=== PATIENT | female | born 2000 | race Two or more races ===

== ENCOUNTER 2025-08-20 00:11 | Emergency (ER) | payer OTHER, SELFPAY ==
[~2025-08-20] VITALS: Ht 167.6 cm; Wt 81.1 kg
[2025-08-20 00:13] VITALS: BP 124/79; PULSE 96; RESP 20; TEMP 101.6; O2SAT 97
[2025-08-20] MEDS: SODIUM CHLORIDE 0.9% 1,000 ML IV ONE (01:15)
--- NOTE | 2025-08-20 01:22 | ED.PDOC ---
HPI (NEURO) HPI Comments 24 y/o F presents with c/c of headache, nausea, and vomiting. Patient reports ongoing symptoms following initial, unprovoked and atraumatic onset, yesterday. Chief Complaint: Headache Time Seen by MD: 00:22 Reviewed Notes: Nurses Notes, Medications, Allergies Information Source: Patient Mode of Arrival: Ambulatory Past Medical History PAST MEDICAL HISTORY: Denies Surgical History: Denies all surgeries HEEL COVERER History: No Pertinent HEEL COVERER History Social History Smoker: Non-Smoker Alcohol: Denies ETOH Use Drugs: Denies Drug Use Lives In: Home All Other Systems: Reviewed and Negative (As per HPI) Physical Exam General Appearance: No Apparent Distress, Normal HEENT: Normal ENT Inspection, Pharynx Normal, TMs Normal Neck: Full Range of Motion, Non-Tender, Normal, Normal Inspection Respiratory: Chest Non-Tender, Lungs Clear, No Accessory Muscle Use, No Respiratory Distress, Normal Breath Sounds Cardiovascular: No Edema, No JVD, No Murmur, No Gallop, Normal Peripheral Pulses, Regular Rate/Rhythm Breast Exam: Deferred Gastrointestinal: No Organomegaly, Non Tender, No Pulsatile Mass, Normal Bowel Sounds, Soft Genitalia: Deferred Pelvic: Deferred Rectal: Deferred Extremities: No calf tenderness, Normal capillary refill, Normal inspection, Normal range of motion, Non-tender, No pedal edema Musculoskeletal : Apperance: Normal Neurologic: Alert, pediatric dietician II-XII nml as Tested, No Motor Deficits, Normal Affect, Normal Mood, No Sensory Deficits Cerebellar Function: Normal Reflexes: Normal Skin: Dry, Normal Color, Warm Lymphatic: No Adenopathy Was a procedure done? Was a procedure done?: No Differential Diagnosis (SZ) Headache: Cluster, Migraine, CVA, Epidural Hemorrhage, Intracerebral Hemorrhage, Subarachnoid Hemorrhage, Subdural Hemorrhage, Sinusitis X-Ray, Labs, Meds, VS Vital Signs Date Time Temp Pulse Resp B/P (MAP) Pulse Ox O2 Delivery O2 Flow Rate FiO2 08/20/25 00:13 101.6 96 20 124/79 97 101.6 Lab Test 08/20/25 03:05 Range/Units Influenza Type A Antigen Negative Negative Influenza Type B Antigen Negative Negative SARS-CoV-2 Antigen (Rapid) Negative NEGATIVE Current Medications Medications (Trade) Dose Ordered Sig/Dasha Route Start Time Stop Time Status Last Admin Acetaminophen (Tylenol Tablet Or Capsule) 1,000 mg ONCE ONCE PO 08/20/25 01:15 08/20/25 01:16 DC 08/20/25 02:31 Sodium Chloride 1,000 ml @ 1,000 mls/hr Q1H ONCE IV 08/20/25 01:15 08/20/25 02:14 DC 08/20/25 01:15 Ketorolac Tromethamine (Toradol Injection) 30 mg ONCE ONCE IV 08/20/25 01:15 08/20/25 01:16 DC 08/20/25 02:30 Prochlorperazine Edisylate (Compazine Inj) 5 mg ONCE ONCE IV 08/20/25 01:15 08/20/25 01:16 DC 08/20/25 02:30 X-Ray, Labs, Meds, VS Comment Patient received 1 L of IV fluids, Tylenol 1 g p.o., Toradol 30 mg IV push and Compazine 5 mg IV push. Influenza and COVID swabs negative This provider when out to discuss results with patient however patient eloped with significant other. IV was removed by nurse. Time of 1ST Reevaluation: 01:00 Reevaluation 1ST: Unchanged Time of 2ND Reevaluation: 04:45 Reevaluation 2ND: Patient eloped Patient Education/Counseling: Diagnosis, Treatment, Need For Follow Up Family Education/Counseling: Diagnosis, Treatment Departure 1 Departure Time of Disposition: 04:46 Impression: Primary Impression: Viral syndrome Disposition: 07 LEFT AWOL/ELOPED Condition: Stable Discharged With: Significant Other Critical Care Note Critical Care Time?: No Stability Stability form required: No Heart Score Heart Score: Heart Score Response (Comments) Value History N/A 0 EKG N/A 0 Age N/A 0 Risk Factors N/A 0 Troponin N/A 0 Total 0 I personally scribed for ER ([email or web address]) on 08/20/25 at 01:22. Electronically fam bmitted by Darrius Mackenzie ([email or web address]). ER Aug 20, 2025 01:22 ANGELA JOE Aug 20, 2025 02:47
[2025-08-20] MEDS: PROCHLORPERAZINE EDISYLATE 5 MG/ML 2ML VIAL IV ONE (02:30)
[2025-08-20] MEDS: KETOROLAC TROMETH 30 MG/ML 1ML VIAL IV ONE (02:30)
[2025-08-20] MEDS: ACETAMINOPHEN 500 MG TAB or CAP PO ONE (02:31)
[2025-08-20 04:15] LABS: COVID19 ANTIGEN SOFIA FIA NEGATIVE (NEGATIVE)
[2025-08-20] MEDS ORDERED: BACDST PO (16:55)
== END 2025-08-20 04:10 | disposition left against medical advice (07) ==
LOC: ER 00:11
DX: B34.9 Viral infection, unspecified (principal); Z20.822 Contact with and (suspected) exposure to COVID-19
CPT/HCPCS: 36415; 87426; 87804; 96361; 96374; 96375; 99284; J0780; J1885; J7030

== ENCOUNTER 2025-08-20 11:42 | Emergency (ER) | payer SELFPAY ==
[~2025-08-20] VITALS: Ht 167.6 cm; Wt 82.2 kg
[2025-08-20 14:29] LABS: Urine Protein, UAD 2+ (Negative); Urine WBC Clumps PRESENT /hpf (None Seen)
[2025-08-20 14:34] LABS: Amphetamine Screen, Urine Neg (NEGATIVE)
[2025-08-20 14:36] LABS: Barbiturate Scree,Urine Neg (NEGATIVE); Benzodiazephine Screen, Urine Neg (NEGATIVE); Cannabinoid Screen, Urine Neg (NEGATIVE); Cocaine Screen, Urine Neg (NEGATIVE); Opiate Scree,Urine Neg (NEGATIVE); Phencyclidine Screen, Urine Neg (NEGATIVE)
[2025-08-20 14:38] LABS: Chloride 107 mmol/L (98-107); Hematocrit 30.0 % (36.0-46.0); Hemoglobin 9.6 g/dL (12.2-16.2); Mean Corpuscular Hemoglobin 23.7 pg (28.0-32.0); Mean Corpuscular Volume 74.2 fL (80.0-100.0); Nucleated Red Blood Cells % 0.0 %; Potassium 3.9 mmol/L (3.5-5.1); Sodium 142 mmol/L (136-145)
[2025-08-20 14:39] LABS: Anion Gap 13 (5-15); Carbon Dioxide 22 mmol/L (20-31)
[2025-08-20 14:40] LABS: Calcium 9.5 mg/dL (8.7-10.4)
[2025-08-20 14:45] LABS: BUN/Creatinine Ratio 21.3 (10.0-20.0); Blood Urea Nitrogen 17 mg/dL (9-23); Glucose 114 mg/dL (74-106)
--- NOTE | 2025-08-20 15:20 | ED.PDOC ---
General HPI Comments This is a pleasant 24-year-old female that presents with generalized malaise, myalgia, fevers, headache Patient reports she was here yesterday for a generalized headache and body aches, was treated with the medications and discharged after COVID and influenza tests were negative Patient admits medication helps temporarily but reports worsening symptoms this morning upon waking up Is not able to get adequate relief with [id number] Tylenol and Motrin Denies persistent chest pain, shortness of breath, leg swelling Denies history of asthma nor any breathing conditions Denies history of pneumonia Denies recent international travel Chief Complaint: Headache Time Seen by MD: 11:52 Reviewed notes: Nurses Notes, Medications, Allergies Allergies: Coded Allergies: NO KNOWN ALLERGIES (Unverified , 08/20/25) Home Meds Active Scripts Sulfamethoxazole W/Trimethopri (Bactrim Ds Tablet) 1 Tab Tb, 1 TAB PO BID for 14 Days, #28 TAB 0 Refills Prov:OSCAR HARRIS NP 08/20/25 Information Source: Patient Mode of Arrival: Ambulatory Past Medical History PAST MEDICAL HISTORY: Denies Surgical History: Denies all surgeries DIESEL ENGINE I PIPE FITTER History: No Pertinent DIESEL ENGINE I PIPE FITTER History Social History Smoker: Non-Smoker Alcohol: Denies ETOH Use Drugs: Denies Drug Use Lives In: Home All Other Systems: Reviewed and Negative (Per HPI) Physical Exam General Appearance: No Apparent Distress, Normal HEENT: Normal ENT Inspection, Pharynx Normal, TMs Normal Neck: Full Range of Motion, Non-Tender, Normal, Normal Inspection Respiratory: Chest Non-Tender, Lungs Clear, No Accessory Muscle Use, No Respiratory Distress, Normal Breath Sounds Cardiovascular: No Edema, No JVD, No Murmur, No Gallop, Normal Peripheral Pulses, Regular Rate/Rhythm Breast Exam: Deferred Gastrointestinal: No Organomegaly, Non Tender, No Pulsatile Mass, Normal Bowel Sounds, Soft Genitalia: Deferred Pelvic: Deferred Rectal: Deferred Extremities: No calf tenderness, Normal capillary refill, Normal inspection, Normal range of motion, Non-tender, No pedal edema Musculoskeletal : Apperance: Normal Neurologic: Alert, vineyardist II-XII nml as Tested, No Motor Deficits, Normal Affect, Normal Mood, No Sensory Deficits Cerebellar Function: Normal Reflexes: Normal Skin: Dry, Normal Color, Warm Lymphatic: No Adenopathy Was a procedure done? Was a procedure done?: No Differential Diagnosis Kidney stone (Female): Other Urinary Problem (Female): PID, Pyelonephritis, Urinary retention, Urolithiasis, UTI, Vaginitis, Other X-Ray, Labs, Meds, VS Vital Signs Date Time Temp Pulse Resp B/P (MAP) Pulse Ox O2 Delivery O2 Flow Rate FiO2 08/20/25 17:52 98.9 08/20/25 16:57 69 16 100 Room Air 08/20/25 16:57 98.9 69 16 113/59 (77) 100 98.9 08/20/25 15:49 98.7 08/20/25 11:45 100.2 80 17 132/80 99 100.2 Lab Test 08/20/25 14:03 08/20/25 13:56 Range/Units White Blood Count 13.3 H 4.4-10.8 10^3/uL Red Blood Count 4.04 4.0-5.20 10^6/uL Hemoglobin 9.6 L 12.2-16.2 g/dL Hematocrit 30.0 L 36.0-46.0 % Mean Corpuscular Volume 74.2 L 80.0-100.0 fL Mean Corpuscular Hemoglobin 23.7 L 28.0-32.0 pg Mean Corpuscular Hemoglobin Concent 31.9 L 32.0-36.0 g/dL Red Cell Distribution Width 15.1 H 11.8-14.3 % Platelet Count 413 140-450 10^3/uL Mean Platelet Volume 7.9 6.9-10.8 fL Neutrophils (%) (Auto) 77.6 37.0-80.0 % Lymphocytes (%) (Auto) 15.7 10.0-50.0 % Monocytes (%) (Auto) 6.3 0.0-12.0 % Eosinophils (%) (Auto) 0.3 0.0-7.0 % Basophils (%) (Auto) 0.1 0.0-2.0 % Neutrophils # (Auto) 10.4 H 1.6-8.6 10 ^3/uL Lymphocytes # (Auto) 2.1 0.4-5.4 10 ^3/uL Monocytes # (Auto) 0.8 0-1.3 10 ^3/uL Eosinophils # (Auto) 0 0-0.8 10 ^3/uL Basophils # (Auto) 0 0-0.2 10 ^3/uL Nucleated Red Blood Cells 0.0 % Sodium Level 142 136-145 mmol/L Potassium Level 3.9 3.5-5.1 mmol/L Chloride Level 107 98-107 mmol/L Carbon Dioxide Level 22 20-31 mmol/L Anion Gap 13 5-15 Blood Urea Nitrogen 17 9-23 mg/dL Creatinine 0.80 0.550-1.02 mg/dL Glomerular Filtration Rate Calc 107 >90 mL/min BUN/Creatinine Ratio 21.3 H 10.0-20.0 Serum Glucose 114 H 74-106 mg/dL Calcium Level 9.5 8.7-10.4 mg/dL Urine Color Brown H Yellow Urine Clarity Ex.turbid Clear Urine pH 6.0 5.0-9.0 Urine Specific [place] 1.024 1.001-1.035 Urine Protein 2+ H Negative Urine Ketones Negative Negative Urine Blood 3+ H Negative /uL Urine Nitrite Negative Negative Urine Bilirubin Negative Negative Urine Urobilinogen Normal Negative mg/dL Urine Leukocyte Esterase 3+ Negative /uL Urine RBC 332 0 - 4 /hpf Urine WBC Clumps Present None Seen /hpf Urine Microscopic WBC 1701 H 0-5 /HPF Urine Squamous Epithelial Cells Many <5 /hpf Urine Bacteria None seen None Seen /hpf Urine Mucus Few None Seen Urine Glucose Normal Normal mg/dL Urine Test Negative Negative Urine Opiates Screen Neg NEGATIVE Urine Fentanyl Screen Neg NEGATIVE Urine Barbiturates Screen Neg NEGATIVE Urine Phencyclidine Screen Neg NEGATIVE Urine Amphetamines Screen Neg NEGATIVE Urine Benzodiazepines Screen Neg NEGATIVE Urine Cocaine Screen Neg NEGATIVE Urine Cannabinoids Screen Neg NEGATIVE Current Medications Medications (Trade) Dose Ordered Sig/Dasha Route Start Time Stop Time Status Last Admin Ceftriaxone Sodium/Dextrose 50 ml @ 50 mls/hr ONCE ONCE IV 08/20/25 15:00 08/20/25 15:59 DC 08/20/25 15:47 Acetaminophen (Tylenol Tablet) 650 mg ONCE ONCE PO 08/20/25 15:00 08/20/25 15:39 DC 08/20/25 15:49 Sodium Chloride 1,000 ml @ 1,000 mls/hr Q1H ONCE IV 08/20/25 15:00 08/20/25 15:59 DC 08/20/25 15:44 X-Ray, Labs, Meds, VS Comment History and lab findings consistent with pyelonephritis The urinalysis confirms the diagnosis. In the ED, the patient was treated with Ceftriaxone, IV Fluids, The patient was overall well appearing and safe for discharge home. Able to tolerate PO. Prescriptions for antibiotics given. The patient is instructed to follow up with primary care physician. Return precautions to the ED discussed. Vital signs stable patient stable Patient tolerating p.o. fluids Encouraged parents to increase water intake Practice good personal hygiene. Always wipe from front to back Drink plenty of fluids to help flush bacteria out of the urinary tract Empty bladder completely as soon as you feel the urge Empty bladder after intercourse Prescribed p.o. antibiotics for presentation of symptoms Complete course of antibiotic therapy even if symptoms improve or resolve. There should be no leftover antibiotics as this can lead to antibiotic resistant bacteria and even worse infection. Parents verbalized understanding. Potential side effects discussed with patient including abdominal pain, nausea, diarrhea. Recommended probiotics and return precautions given Persistent diarrhea Dehydration Blood in stool Ill-appearing On reevaluation, patient had symptomatic improvement. Patient is stable for discharge at this time. External notes reviewed. Test results and diagnostic imaging interpreted. All diagnostic findings, discharge care, education and instructions provided Follow-up with PCP in 2 to 3 days Patient verbalized understanding and agreed to treatment plan Vital signs stable, afebrile, no acute distress noted Patient ambulatory with strong steady gait Advised to return precautions for any new or worsening symptoms, return to ER immediately for re-evaluation Patient is aware that the purpose of this visit was for an acute medical emergency requiring emergent stabilization. Chronic conditions, including malignancies have not been ruled out. Patient is instructed to follow up with PCP as directed and discharge instructions for continued care and workup. If unable to arrange follow-up, patient is to return to the emergency department for reassessment. Patient (parent or legal guardian if applicable) was given verbal and written discharge instructions and acknowledges understanding. Time of 1ST Reevaluation: 15:18 Reevaluation 1ST: Unchanged Patient Education/Counseling: Diagnosis, Treatment Family Education/Counseling: Diagnosis, Treatment SEPSIS Sepsis Screen Date sepsis recognized/suspect: Aug 20, 2025 Time Sepsis recognized/suspect: 1145 Recent Procedure: No On Antibiotic Therapy: No Respiratory Rate >20: No Heart Rate >90: No Temp<36 C (96.8 F) or >38.3 C: No SBP <90 or MAP <65 mmHG: No New Acute Mental Status Change: No Is the patient on CPAP, BIPAP,: No Physician Orders Ct Ab Pel With Iv Con Only (08/20/25 15:00) Heplock Iv (08/20/25 ) Vital Signs Date Time Temp Pulse Resp B/P (MAP) Pulse Ox O2 Delivery O2 Flow Rate FiO2 08/20/25 17:52 98.9 08/20/25 16:57 69 16 100 Room Air 08/20/25 16:57 98.9 69 16 113/59 (77) 100 98.9 08/20/25 15:49 98.7 08/20/25 11:45 100.2 80 17 132/80 99 100.2 Laboratory Tests Test 08/20/25 14:03 White Blood Count 13.3 10^3/uL (4.4-10.8) H Departure 1 Departure Time of Disposition: 16:54 Impression: Primary Impression: Pyelonephritis Disposition: 01 HOME / SELF CARE / HOMELESS Condition: Fair e-Prescriptions Sulfamethoxazole W/Trimethopri (Bactrim Ds Tablet) 1 Tab Tb 1 TAB PO BID for 14 Days, #28 TAB 0 Refills Prov: OSCAR HARRIS NP 08/20/25 Discharged With: Self Critical Care Note Critical Care Time?: No Stability Stability form required: No Heart Score Heart Score: Heart Score Response (Comments) Value History N/A 0 EKG N/A 0 Age N/A 0 Risk Factors N/A 0 Troponin N/A 0 Total 0 OSCAR HARRIS NP Aug 20, 2025 15:20
[2025-08-20] MEDS: SODIUM CHLORIDE 0.9% 1,000 ML IV ONE (15:44)
[2025-08-20] MEDS: ACETAMINOPHEN 325 MG TAB PO ONE (15:49)
[2025-08-20] MEDS: IOHEXOL 300 MG/ML 100ML BOTTLE IJ ONE (16:29)
--- NOTE | 2025-08-20 16:47 | DVH ---
COMPUTERIZED TOMOGRAPHY ABDOMEN AND PELVIS WITH CONTRAST REASON FOR EXAM: pyelonephritis COMPARISON: None TECHNIQUE: The exam was performed on a Multidetector scanner. Spiral scans were acquired from the sandy phragm to the symphysis pubis after administration of IV contrast. 2-D coronal and sagittal reformatt ed images were provided. Radiation optimization: All CT scans at this facility use at least one of th imani dose optimization techniques: Automated exposure control mA and/or kV adjustment per patient size (includes targeted exams where dose is matched to clinical indication) or iterative reconstruction. CONTRAST ADMINISTRATION: 97 cc Omnipaque 300 intravenously RADIATION DOSE: CTDI: 22 mGy DLP: 1215 mGy-cm FINDINGS: There is minimal dependent atelectasis of the visualized lung bases. There is no pleural effusion. There is no pericardial effusion. The spleen is not enlarged. The liver is normal in size and contour. Evaluation of the abdomen and pe lvis is degraded by streak artifact from the patient's arms. No calcified gallstone is identified. Pa ncreas is unremarkable. The adrenal glands are normal. The kidneys enhance symmetrically. No solid re nal mass is identified. There is no hydronephrosis of either kidney. The bladder appears thick walled . The uterus and ovaries are grossly unremarkable. There is trace free fluid in the dependent pelvis, likely physiologic. The patient is status post partial gastrectomy. The colonic stool burden is smal l. The appendix is normal. There is no distention of the small bowel. There is no abdominal aortic aneurysm. No acute osseous abnormality is identified. IMPRESSION: The urinary bladder is thick-walled, suggestive of cystitis. Pyelonephritis cannot be ruled out with CT. Correlate clinically.
[2025-08-20] MEDS ORDERED: BACDST PO (16:55)
[2025-08-20 16:57] VITALS: BP 113/59; PULSE 69; RESP 16; O2SAT 100
[2025-08-20 17:52] VITALS: TEMP 98.9
== END 2025-08-20 18:06 | disposition home or self-care (01) ==
LOC: ER 11:42
DX: N12 Tubulo-interstitial nephritis, not specified as acute or chronic (principal)
CPT/HCPCS: 36415; 74177; 80048; 80307; 81001; 81025; 85025; 96365; 96366; 99285; J0696; J7030; Q9967